=== PATIENT | female | born 1940 | race Caucasian/White ===

== ENCOUNTER 2019-12-15 14:46 | Emergency (ER) | payer OTHER ==
[~2019-12-15] VITALS: Ht 160 cm; Wt 72.6 kg
[~2019-12-15 14:46] MED LIST: LISINOPRIL10 MG PO; MOBIC7.5 MG PO; NORCO 5-325 TA1 EACH PO
[2019-12-15 15:39] LABS: ABSOLUTE NEUTROPHILS 10.3 thou/uL (1.4-8.2); BASOPHILS 0.6 % (0.0-2.0); EOSINOPHILS 0.7 % (0.0-3.0); HEMATOCRIT 41.6 % (37.0-47.0); HEMOGLOBIN 13.5 gm/dL (12.0-15.0); MCH 27.6 pg (26.0-34.0); MCHC 32.4 g/dL (28.0-37.0); MCV 85.2 fL (80.0-100.0); MONOCYTES 9.4 % (1.0-8.0); PLATELET COUNT 329 thou/uL (150-400); POLYS 78.3 % (36.0-66.0); RBC 4.88 mil/uL (4.20-5.00); WBC 13.2 thou/uL (4.0-11.0)
[2019-12-15 15:53] LABS: CALCIUM 9.3 mg/dL (8.5-10.1); CREATININE 0.9 mg/dL (0.6-1.0); POTASSIUM 3.7 mmol/L (3.5-5.1)
[2019-12-15 15:56] LABS: ALBUMIN 3.9 g/dL (3.4-5.0); TOTAL BILIRUBIN 0.6 mg/dL (<0.1-1.0); TOTAL PROTEIN 8.4 g/dL (6.4-8.2)
[2019-12-15 16:31] LABS: URINE BILIRUBIN NEGATIVE (Negative); URINE BLOOD NEGATIVE (Negative); URINE CLARITY CLEAR; URINE COLOR YELLOW; URINE GLUCOSE-RANDOM* NEGATIVE (Negative); URINE KETONES NEGATIVE (Negative); URINE LEUKOCYTES-REFLEX NEGATIVE (Negative); URINE NITRITE-REFLEX NEGATIVE (Negative); URINE PROTEIN (DIPSTICK) NEGATIVE (Negative); URINE UROBILINOGEN 0.2 E.U./dl (0.2-1.0)
[2019-12-15 16:50] VITALS: BP 143/61
== END 2019-12-15 16:50 | disposition home or self-care (01) ==
LOC: ER 14:46
PROVIDERS: Emergency Medicine
DX: R33.9 Retention of urine, unspecified (principal); I10 Essential (primary) hypertension

== ENCOUNTER 2020-08-04 16:51 | Observation (INO) | payer OTHER ==
[~2020-08-04] VITALS: Ht 160 cm; Wt 72.6 kg
--- NOTE | ~2020-08-04 | HC ---
[facility] [place] [address] CONSULTATION Name: LUIS DANIEL LOPEZ Room #: 170-14 ADM IN M.R.#: [id number] Admission: 08/04/20 Attend Phys: Nicci Wagner MD Discharge: Date of : 38 Report #: [id number] THIS REPORT FOR: cc: Donna Claros MD,Quique Navarrete MD, MD ~ CC: Donna Wagner DATE OF SERVICE: 08/05/2020 HISTORY OF PRESENT ILLNESS: This is an 79-year-old female patient who was evaluated by me for any neurological etiology for an episode she had. She said she lost her speech. Her words just did not come out. She did not have any associated focal motor deficit. The symptoms came spontaneously. Within few minutes, it resolved by itself. She estimated that to be about 10-15 minutes. I had talked to the Emergency Room provider yesterday. She does not have any prior history of stroke or TIA. REVIEW OF SYSTEMS: A 14-point review of system was carried out. She does not have a history of diabetes. She does have a history of hypertension. The blood pressure stays around 140 according to her. She was given some medication, which produced cough. She stopped taking it. I assume it was MEGGAN inhibitor, but she does not know the name. She said it did not make any difference to her blood pressure. Otherwise, according to her, 14-point review of system was mostly unremarkable. She had glaucoma, but she takes some drop. She does not complain of presently any eye, ENT, cardiac, respiratory, GI, , musculoskeletal, constitutional, dermatological, hematological, psychiatric, throat, allergic symptom associated with present symptomatology. PAST MEDICAL HISTORY: Negative for this kind of episode. FAMILY HISTORY: Positive for TIA, but that was in later stage of the life. SOCIAL HISTORY: She is not a smoker. PHYSICAL EXAMINATION: Indicate she is alert, responsive. Her speech, concentration, fund of knowledge and memory is unremarkable. Cranial nerve examination 2-12 was mostly unremarkable. I did not see any hemianopsia or any facial weakness. She has symmetrical strength, sensation, reflexes and tone in all 4 extremities. Her plantars are mute. I could not look at the fundus. There is no meningeal sign. There is no carotid bruit. Pulses appeared to be palpable. She is moderately built individual who does not have any dysmorphic features of eyes, ears and face. Her vision and hearing look adequate. Cardiac examinations appear unremarkable. No respiratory difficulty was noticed. Blood [address] [address] CONSULTATION Name: LUIS DANIEL LOPEZ Room #: [facility] ADM IN M.R.#: [id number] Admission: 08/04/20 Attend Phys: Nicci Wagner MD Discharge: Date of : 38 Report #: [id number] pressure is 117/66, respirations 20, pulse is 83. LABORATORY DATA: Indicate a white count of 7.3. Her creatinine was 1.1. She has no thyroid mass. There is no carotid bruit. IMPRESSION: This patient appeared to have transient ischemic attack. Her creatinine was somewhat high at 1.1. I have talked to Emergency Room provider and recommended that they talk to Radiology as well as Nephrology to see if CT angiogram can be done. From talking to them, they tell me they cleared the patient's CT angiogram and they did that and that was unremarkable. Subsequently, the patient had an MRI and MRA and I reviewed that and that is also unremarkable. She was not on aspirin. I think it will be okay to start the patient on aspirin, but she should take full 325 mg of aspirin. I did discuss the possibility of taking a combination of aspirin and Plavix for 30 days and subsequently going back on one of those, but she preferred just to take aspirin, but I think she should take 325 mg half aspirin and that is okay. Her LDL is 83, so I think she can be started on some statin, although her HDL is also high. I will defer that to admitting. She does need some more workup. She will need some sed rate, ADALGISA, cardiolipin antibodies, homocysteine as an outpatient. She needs an echocardiogram with a bubble study. PT, OT consult is pending, and if she ambulates well, from my perspective, she can be sent home and have those tests done as an outpatient and she can follow up with us in about 1-2 weeks and we can check on those testing. If she has any further symptoms, she should go to Emergency Room. Thank you very much for this referral. By: [id number] Quique Mcbride MD /nt
[2020-08-04 16:58] VITALS: BP 228/116
--- NOTE | 2020-08-04 17:15 | NUR ---
LEVEL [facility] STROKE NOT CALLED PER DR MICHAEL DUE TO HAVING NO SYMPTOMS
[2020-08-04 17:30] LABS: ABSOLUTE NEUTROPHILS 3.7 thou/uL (1.4-8.2); BASOPHILS 0.6 % (0.0-2.0); EOSINOPHILS 4.5 % (0.0-3.0); HEMATOCRIT 42.7 % (37.0-47.0); HEMOGLOBIN 13.8 gm/dL (12.0-15.0); LYMPHOCYTES 32.7 % (24.0-44.0); MCH 27.9 pg (26.0-34.0); MCHC 32.2 g/dL (28.0-37.0); MCV 86.6 fL (80.0-100.0); MONOCYTES 11.6 % (1.0-8.0); PLATELET COUNT 285 thou/uL (150-400); POLYS 50.6 % (36.0-66.0); RBC 4.93 mil/uL (4.20-5.00); WBC 7.3 thou/uL (4.0-11.0)
[2020-08-04 17:31] LABS: URINE BILIRUBIN NEGATIVE (Negative); URINE BLOOD NEGATIVE (Negative); URINE CLARITY CLEAR; URINE COLOR YELLOW; URINE GLUCOSE-RANDOM* NEGATIVE (Negative); URINE KETONES NEGATIVE (Negative); URINE LEUKOCYTES-REFLEX NEGATIVE (Negative); URINE NITRITE-REFLEX NEGATIVE (Negative); URINE PROTEIN (DIPSTICK) NEGATIVE (Negative); URINE SPECIFIC GRAVITY <= 1.005 (1.005-1.035); URINE UROBILINOGEN 0.2 E.U./dl (0.2-1.0)
[2020-08-04 17:35] LABS: ANION GAP 8 mmol/L (7-16); BUN 18 mg/dL (7-18); CALCIUM 9.3 mg/dL (8.5-10.1); CHLORIDE 101 mmol/L (98-107); CO2 29 mmol/L (21-32); CREATININE 1.1 mg/dL (0.6-1.0); GLUCOSE 103 mg/dL (74-106); POTASSIUM 4.1 mmol/L (3.5-5.1); SODIUM 138 mmol/L (136-145)
[2020-08-04 17:44] LABS: TROPONIN-I <0.06 ng/mL (<0.06)
[2020-08-05 06:26] LABS: ANION GAP 7 mmol/L (7-16); BUN 19 mg/dL (7-18); CALCIUM 8.5 mg/dL (8.5-10.1); CHLORIDE 106 mmol/L (98-107); CHOLESTEROL 159 mg/dL (<200); CO2 27 mmol/L (21-32); CREATININE 1.1 mg/dL (0.6-1.0); GLUCOSE 88 mg/dL (74-106); HDL CHOLESTEROL 54 mg/dL (>40); LDL CHOLESTEROL 83 mg/dL (<100); POTASSIUM 3.7 mmol/L (3.5-5.1); SODIUM 140 mmol/L (136-145); TC:HDL 2.9 Ratio (Not establshd); TRIGLYCERIDE 114 mg/dL (<150); VLDL 23 mg/dL (<40)
[2020-08-05 06:28] LABS: SERUM ASSESSMENT Clear
--- NOTE | 2020-08-05 07:38 | EKG ---
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
[2020-08-05 10:02] LABS: HEMATOCRIT 38.2 % (37.0-47.0); HEMOGLOBIN 12.4 gm/dL (12.0-15.0); MCH 27.9 pg (26.0-34.0); MCHC 32.3 g/dL (28.0-37.0); MCV 86.4 fL (80.0-100.0); PLATELET COUNT 243 thou/uL (150-400); RBC 4.42 mil/uL (4.20-5.00); RDW 13.7 % (10.5-14.5); WBC 6.5 thou/uL (4.0-11.0)
[2020-08-05 10:09] LABS: ALBUMIN 3.3 g/dL (3.4-5.0); CALCIUM 8.6 mg/dL (8.5-10.1); CREATININE 0.9 mg/dL (0.6-1.0); MAGNESIUM 2.2 mg/dL (1.8-2.4); POTASSIUM 3.9 mmol/L (3.5-5.1); TOTAL BILIRUBIN 0.3 mg/dL (0.2-1.0); TOTAL PROTEIN 6.7 g/dL (6.4-8.2)
[2020-08-05 10:30] LABS: ABSOLUTE NEUTROPHILS 3.1 thou/uL (1.4-8.2); ATYPICAL LYMPHS 4 %
[2020-08-05 10:31] LABS: PLATELET ESTIMATE NORMAL
[2020-08-05 12:04] VITALS: BP 166/60
[2020-08-05 13:43] VITALS: BP 166/60
[2020-08-05 14:10] VITALS: BP 152/63
[2020-08-05 15:00] VITALS: BP 146/68
--- NOTE | 2020-08-05 18:10 | NUR ---
PT CARE ASSUMED 1445. TRANSFER FROM ED. ASSESSMENT CHARTED. MEDICATION CHARTED. PT ADMISSION COMPLETE. LAC IV. NORMAL SINUS RHYTHM. AO X 4. UP AD GOPAL. MRI: NEGATIVE. POSSIBLE TIA.
[2020-08-05 20:30] VITALS: BP 149/66
[2020-08-06 00:06] LABS: GLYCOHEMOGLOBIN (HGB A1C) 6.1 % (4.8-5.6)
[2020-08-06 04:45] VITALS: BP 154/70
[2020-08-06 07:55] VITALS: BP 167/65
[2020-08-06 08:05] VITALS: BP 167/65
--- NOTE | 2020-08-06 08:41 | NUR ---
pt care assummed at the change of shift, pt is awake, alert and oriented, assessments as charted, vss, denied having concerns, progressing well towards discharge; passed on report
[2020-08-06 11:50] VITALS: BP 155/69
[2020-08-06 12:05] VITALS: BP 167/65
--- NOTE | 2020-08-06 12:11 | NUR ---
ORDERS RECEIVED FOR PT EVAL AND TREAT. Pt ADMITTED WITH EXPRESSIVE APHASIA, POSSIBLE TIA OR CVA. MRI NEGATIVE FOR ACUTE INFARCT. EXPRESSIVE APHASIA HAS RESOLVED. DENIED N/T. LIVES ALONE IN HOME WITH 5 JULIUS WITH HR AND SPLIT LEVEL INSIDE WITH 6 STEPS WITH BILAT HR. DENIED RECENT FALLS. NO GAIT AIDS AT BASELINE. Pt HAS BEEN UP AD GOPAL SINCE ARRIVAL AND REPORTS NO DIFFICULTIES WITH MOBILITY. Pt DECLINING PT NEEDS AT THIS TIME. ACUTE PT TO SIGN OFF.
--- NOTE | 2020-08-06 13:58 | 2DMMODE ---
[facility] [place] [address] 2 D/M-MODE ECHOCARDIOGRAM Name: LATOYA LOPEZZuhair Bower Room #: 210-P [facility] M.R.#: [id number] Admission: 08/04/20 Attend Phys: Nicci Wagner MD Discharge: Date of : 38 Report #: [id number] THIS REPORT FOR: cc: Donna Claros MD, Danielle R MD Lammoglia, Francisco J. MD ~ APPROVED REPORT Study performed: 08/06/2020 11:09:32 EXAM: Comprehensive 2D, Doppler, and color-flow Echocardiogram Patient Location: Bedside Room #: 210 Status: routine BSA: 1.74 HR: 71 bpm BP: 167/65 mmHg Rhythm: NSR Other Information Study Quality: Adequate Indications CVA/TIA Hypertension/HDD Echo Enhancing Agent Indication: Rule out Shunt Agent(s) / Amount(s) Used: Agitated Saline 7 cc 2D Dimensions RVDd: 32.33 mm IVSd: 8.76 (7-11mm) LVOT Diam: 18.14 (18-24mm) LVDd: 44.57 mm PWd: 9.36 (7-11mm) Ascending Ao: 30.50 (22-36mm) LVDs: 32.78 (25-40mm) Aortic Root: 29.71 mm IVC: 19.00 mm Volumes Left Atrial Volume (Systole) Single Plane 4CH: 15.70 mL Single Plane 2CH: 34.09 mL LA ESV Index: 16.00 mL/m2 Aortic Valve [facility] [place] [address] 2 D/M-MODE ECHOCARDIOGRAM Name: LUIS DANIEL LOPEZ Room #: 210-P [facility] IN ..#: [id number] Admission: 08/04/20 Attend Phys: Nicci Wagner, Discharge: Date of : 38 Report #: [id number] LVOT Max P.44 mmHg LVOT Max V: 0.93 m/s Mitral Valve E/A Ratio: 1.2 MV Decel. Time: 176.90 ms MV E Max Rmei.: 0.87 m/s MV A Remi.: 0.75 m/s MV PHT: 51.30 ms IVRT: 92.27 ms Pulmonary Valve PV Peak Remi.: 0.77 m/s PV Peak Gr.: 2.40 mmHg Pulmonary Vein P Vein S: 0.22 m/s P Vein A: 0.27 m/s P Vein D: 0.20 m/s P Vein A Dur.: 78.4 msec P Vein S/D Ratio: 1.10 Tricuspid Valve TR Peak Remi.: 2.28 m/s TR Peak Gr.: 20.71 mmHg PA Pressure: 26.00 mmHg Left Ventricle The left ventricle is normal size. There is normal LV segmental wall motion. There is normal left ventricular wall thickness. Left ventricular systolic function is normal. The left ventricular ejection fraction is within the normal range. LVEF is 55-60%. Grade II - pseudonormal filling dynamics. Right Ventricle The right ventricle is normal size. The right ventricular systolic function is normal. Atria The left atrium size is normal. The right atrium size is normal. Aortic Valve The aortic valve is normal in structure. The Aortic valve is sclerotic. Mild aortic regurgitation. There is no aortic valvular stenosis. Mitral Valve The mitral valve is normal in structure. There is no mitral valve [facility] [place] [address] 2 D/M-MODE ECHOCARDIOGRAM Name: LUIS DANIEL LOPEZ Room #: 210-P [facility] IN [facility].#: [id number] Admission: 08/04/20 Attend Phys: Nicci Wagner, Discharge: Date of : 38 Report #: [id number] regurgitation noted. No evidence of mitral valve stenosis. Tricuspid Valve The tricuspid valve is normal in structure. There is trace tricuspid regurgitation. Estimated PAP 26 mmHg. There is no pulmonary hypertension. Pulmonic Valve The pulmonary valve is normal in structure. There is no pulmonic valvular regurgitation. Great Vessels The aortic root is normal in size. IVC is normal in size and collapses >50% with inspiration. Pericardium There is no pericardial effusion. <Conclusion> The left ventricle is normal size. LVEF is 55-60%. The aortic valve is normal in structure. The Aortic valve is sclerotic. Mild aortic regurgitation. The mitral valve is normal in structure. The tricuspid valve is normal in structure. There is trace tricuspid regurgitation. Estimated PAP 26 mmHg. There is no pulmonary hypertension. The pulmonary valve is normal in structure. There is no pericardial effusion. <ELECTRONICALLY SIGNED> By: Lewis Sarabia MD 08/06/20 1358 [id number] [id number] Lewis Sarabia MD /INF
[2020-08-06] MEDS ORDERED: METOPROLOL SUCC25 M1 PO (15:22)
[2020-08-06] MEDS ORDERED: ATORVASTATIN CA10 MG PO (15:22)
[2020-08-06] MEDS ORDERED: COZAAR 50 MG TA50 M1 PO (15:24)
[2020-08-06] MEDS ORDERED: ASA5UEC PO (15:25)
[2020-08-06] MEDS ORDERED: PEPCID20 MG PO (15:38)
[2020-08-06 15:43] VITALS: BP 167/65
--- NOTE | 2020-08-06 17:21 | NUR ---
PT CARE ASSUMED AT 0700. ASSESSMENT CHARTED. MEDICATION CHARTED. ECHO COMPLETE; NORMAL. LAC IV. UP AD GOPAL. AO X 4. NORMAL SINUS RHYTHM. PT TO BE DISCHARGED HOME. PAPERWORK SIGNED. TELEMETRY D/C'D. IV D/C'D.
== END 2020-08-06 16:36 | disposition home or self-care (01) ==
LOC: ER 16:51 → 2N 21:02 → EROBS 21:02 → 2N 08-05 14:10
PROVIDERS: Nurse Practitioner; Nurse Practitioner Family; ADMIT Internal Medicine; ATTEND Internal Medicine
DX: G45.9 Transient cerebral ischemic attack, unspecified (principal); I10 Essential (primary) hypertension; E66.3 Overweight; Z68.28 Body mass index [BMI] 28.0-28.9, adult; I16.0 Hypertensive urgency; R47.01 Aphasia; Z79.899 Other long term (current) drug therapy
CPT/HCPCS: 10081